=== PATIENT | male | born 1970 | race Caucasian/White ===

== ENCOUNTER 2018-02-08 15:32 | Observation (INO) | payer BC ==
[~2018-02-08] VITALS: Ht 188 cm; Wt 98.5 kg
--- NOTE | ~2018-02-08 | OP ---
PATIENT NAME: AMY SANTIAGO MEDICAL RECORD: [id number] :66 LOCATION:D.M2 D.2103 ADMISSION DATE:02/08/18 SURGEON: HOA KHAN MD DATE OF OPERATION: 02/09/2018 PREOPERATIVE DIAGNOSIS: Puncture wound to the posterior right thigh - goring injury. POSTOPERATIVE DIAGNOSIS: Puncture wound to the posterior right thigh - goring injury. PROCEDURE: Excisional debridement of skin, subcutaneous tissue, portions of fat, fascia, and muscle. SURGEON: Hoa Khan MD ANESTHESIA: General. INTRAOPERATIVE COMPLICATIONS: None. SUMMARY OF PATHOLOGIC FINDINGS: Clearly the tract of the horn was in several directions. The primary muscle torn is the semimembranosus, vastus lateralis, and the IT band. The puncture wound was very small. It was not opened for direct repair as they were injured, but not torn completely based on examination. The wound was copiously irrigated, cultured, and loosely reapproximated. INDICATIONS: This is a 47-year-old gentleman, who had been working cattle all day. At the end of the day, he quite simply could not get over the fence faster than he was charged by the cow. OPERATIVE SUMMARY IN DETAIL: After obtaining the appropriate preoperative orthopedic surgery consent as well as anesthetic consultation, evaluation, and clearance, the patient was brought to the operating room on [facility] and general endotracheal anesthesia was administered on his hospital bed. He was then placed in a prone position. All pressure points were well padded. He was carefully stabilized on the bed with a seatbelt. The posterior lateral upper thigh was prepped and draped in a routine sterile fashion. Irrigation was carried out first superficially and then deep, followed by cultures, followed by exploration of the wound. Wound exploration did reveal the above findings. After approximately 6 liters of pulsatile lavage irrigation, the wound was reapproximated loosely with 2-0 Prolene. Sterile dressings were applied. The patient was returned to a supine position, extubated and taken to recovery room in stable condition. All final needle and sponge counts were correct. TRANSINT:[id number] Voice Confirmation ID: [id number] DOCUMENT ID: [id number] OPERATIVE REPORT [id number] AMY SANTIAGO HOA KHAN MD at 134 CC: [id number] DICTATION DATE: 02/09/18 0145 BUDDHIST MONK: 02/09/18 1035 DIS IN 02/10/18 [facility] [address] [id number]
[2018-02-08 20:00] VITALS: BP 138/69
[2018-02-08] MEDS ORDERED: CYCLOBENZAPRINE10 MG PO (21:43)
[2018-02-08] MEDS ORDERED: MOBIC7.5 MG PO (21:44)
[2018-02-08 22:08] LABS: BASOPHILS 0.1 % (0-2); EOSINOPHILS 0 % (0-7); HEMATOCRIT 43.2 % (42.0-54.0); HEMOGLOBIN 15.2 g/dL (13.5-17.5); IMMATURE GRANULOCYTES 0.3 % (0-5); LYMPHOCYTES 5.5 % (15-50); MCH 31.4 pg (26.0-34.0); MCHC 35.2 g/dL (31.0-37.0); MCV 89.3 fL (80.0-100.0); MEAN PLATELET VOLUME 11.2 fL (7.4-10.4); MONOCYTES 7.7 % (2-11); NEUTROPHILS 86.4 % (40-80); PLATELET COUNT 166 10x3/uL (130-400); RBC 4.84 10x6/uL (4.20-6.10); RDW 12.6 % (11.5-14.5); WBC 15.1 10x3/uL (4.8-10.8)
[2018-02-08 22:21] LABS: CALC OSMOLALITY 283 mosm/kg (275-300); CALCIUM 8.6 mg/dL (8.5-10.1); CARBON DIOXIDE 23.6 mmol/L (21.0-32.0); CHLORIDE - SERUM 103 mmol/L (98-107); GLUCOSE 132 mg/dL (74-106); POTASSIUM - SERUM 4.1 mmol/L (3.5-5.1); SODIUM 140 mmol/L (136-145); UREA NITROGEN 20 mg/dL (7-18); eGFR NON AFRICAN AMERICAN 84 mL/min (90-120)
[2018-02-09] VITALS (7 sets, daily range): BP systolic 92–134; BP diastolic 47–78; Ht 188 cm; Wt 98.5 kg
[2018-02-10 01:23] VITALS: BP 108/66
[2018-02-10 05:29] VITALS: BP 106/64
[2018-02-10 05:49] LABS: HEMOGLOBIN 13.9 g/dL (13.5-17.5)
[2018-02-10] MEDS ORDERED: BACTRIM DS TABL1 TAB PO ×2 (08:39→08:41)
[2018-02-10] MEDS ORDERED: DILAUDID4 MG PO (08:41)
[2018-02-10 10:15] VITALS: BP 95/68
[2018-02-10 12:31] VITALS: BP 104/70
[2018-02-18 15:53] LABS: AEROBE ID Final report (())
== END 2018-02-10 14:39 | disposition home or self-care (01) ==
LOC: D.ER 15:32 → D.M2 20:06 → D.EDHOLD 20:06 → OBSVTIME 20:08 → D.M2 21:00
PROVIDERS: Orthopaedic Surgery
DX: S71.131A Puncture wound without foreign body, right thigh, initial encounter (principal); Y93.K9 Activity, other involving animal care; K21.9 Gastro-esophageal reflux disease without esophagitis